=== PATIENT | male | born 1985 | race Two or more races ===

== ENCOUNTER → 2023-05-11 | Day surgery (SDC) | payer OTHER ==
[~2023-05-11] MED LIST: OXYC1TAB9 PO
== END | disposition home or self-care (01) ==
LOC: ADM 05-02 12:30 → CIR.AMB 08:25
PROVIDERS: ATTEND Surgery
DX: K60.1 Chronic anal fissure (principal); K62.4 Stenosis of anus and rectum; K62.89 Other specified diseases of anus and rectum; K62.5 Hemorrhage of anus and rectum; K64.8 Other hemorrhoids; I10 Essential (primary) hypertension; Z20.822 Contact with and (suspected) exposure to COVID-19

== ENCOUNTER 2023-05-17 07:23 | Emergency (ER) | payer OTHER ==
[~2023-05-17] VITALS: Ht 188 cm; Wt 75.3 kg
== END 2023-05-17 11:52 | disposition home or self-care (01) ==
LOC: ER 07:23
DX: K59.00 Constipation, unspecified (principal); K60.1 Chronic anal fissure